=== PATIENT | male | born 1980 | race Caucasian/White ===

== ENCOUNTER 2017-03-21 20:28 | Emergency (ER) | payer BC, OTHER ==
[~2017-03-21] VITALS: Ht 182.9 cm; Wt 136.9 kg
[~2017-03-21 20:28] MED LIST: ALBU8.5H8; DAYQUIL; GUAI100G2
[2017-03-21 20:30] VITALS: BP 176/110
[2017-03-21] MEDS ORDERED: KETOROLAC 30 MG/1 ML ONE (21:19)
[2017-03-21] MEDS ORDERED: KETOROLAC 30 MG/1 ML IM ONE (21:30)
== END 2017-03-21 21:34 | disposition home or self-care (01) ==
LOC: ED 21:30
DX: S29.011A Strain of muscle and tendon of front wall of thorax, initial encounter (principal); I10 Essential (primary) hypertension; Z45.2 Encounter for adjustment and management of vascular access device; X58.XXXA Exposure to other specified factors, initial encounter; Y93.89 Activity, other specified; Y99.8 Other external cause status; Y92.89 Other specified places as the place of occurrence of the external cause
CPT/HCPCS: 71101; 96372; 99284; J1885